=== PATIENT | female | born 1955 | race African-American/Black ===

== ENCOUNTER 2017-03-27 00:51 | Emergency (ER) | payer BC ==
[2017-03-27 02:52] LABS: ABSOLUTE BASOPHILS # (AUTO) 0.1 10^3/uL (0.0-0.2); ABSOLUTE EOSINOPHILS # (AUTO) 0.2 10^3/uL (0.0-0.6); ABSOLUTE LYMPHOCYTES (AUTO) 1.6 10^3/uL (0.5-4.7); ABSOLUTE MONOCYTES (AUTO) 0.6 10^3/uL (0.1-1.4); ABSOLUTE NEUT (AUTO) 5.4 10^3/uL (1.7-8.2); BASOPHILS % (AUTO) 0.7 % (0-2); EOSINOPHILS % (AUTO) 2.2 % (0-6); HEMOGLOBIN 12.8 g/dL (12.0-15.5); HGB HCT DIFFERENCE 0.4; LYMPHOCYTES % (AUTO) 20.3 % (13-45); MEAN CORPUSCULAR HEMOGLOBIN 30.5 pg (27.0-33.4); MEAN CORPUSCULAR HGB CONC 33.6 g/dL (32.0-36.0); MEAN CORPUSCULAR VOLUME 91 fl (80-97); MONOCYTES % (AUTO) 7.5 % (3-13); RED BLOOD COUNT 4.18 10^6/uL (3.72-5.28); RED CELL DISTRIBUTION WIDTH 15.2 % (11.5-14.0); SEGMENTED NEUTROPHILS % (AUTO) 69.3 % (42-78); WHITE BLOOD COUNT 7.8 10^3/uL (4.0-10.5)
[2017-03-27 03:06] LABS: ALANINE AMINOTRANSFERASE 20 U/L (9-52); ALBUMIN 4.4 g/dL (3.5-5.0); ALKALINE PHOSPHATASE 76 U/L (38-126); ANION GAP 14 (5-19); ASPARTATE AMINO TRANSFERASE 21 U/L (14-36); BILIRUBIN,DIRECT 0.5 mg/dL (0.0-0.4); BILIRUBIN,TOTAL 0.6 mg/dL (0.2-1.3); BLOOD UREA NITROGEN 20 mg/dL (7-20); CARBON DIOXIDE 28 mmol/L (22-30); CHLORIDE 102 mmol/L (98-107); CREATININE RESULT 0.99 mg/dL (0.52-1.25); GLUCOSE 97 mg/dL (75-110); POTASSIUM 3.7 mmol/L (3.6-5.0); SODIUM 143.8 mmol/L (137-145); TOTAL PROTEIN 8.1 g/dL (6.3-8.2)
[2017-03-27 03:35] LABS: CALCIUM 6.5 mg/dL (8.4-10.2)
[2017-03-27] MEDS ORDERED: NORMAL SALINE 1000 ML 1,000 ML IV ONE (06:38)
[2017-03-27] MEDS ORDERED: CLINDAMYCIN 600 MG/D5W RTU 50 ML IV ONE (06:39)
--- NOTE | 2017-03-27 08:50 | RADIOLOGY REPORT (SQ) ---
EXAM DESCRIPTION: CT FACIAL AREA WITHOUT COMPLETED DATE/TIME: 03/27/2017 8:36 am REASON FOR STUDY: left jaw swelling eval abscess; pt refusing IV contrast COMPARISON: None. TECHNIQUE: Noncontrasted images through the facial bones and orbits windowed for bone and soft tissu e. Additional coronal and sagittal reconstructed images reviewed. All images stored on PACS. All CT scanners at this facility use dose modulation, iterative reconstruction, and/or weight based d osing when appropriate to reduce radiation dose to as low as reasonably achievable (ALARA). [facility]: Dose Right [facility]: CareDose [facility]: Dose Right [facility]: Teradose 4D [facility]: Key Travel RADIATION DOSE: 30.40 mGy. LIMITATIONS: None. FINDINGS: FACIAL BONES: No fracture or bone lesion. ORBITS: Intact. No fracture. Symmetric intact globes and retroorbital soft tissues. PARANASAL SINUSES: Clear. No significant mucosal thickening, mass or fluid. No nasal polyps. Maxill jake sinus outlets are patent. SOFT TISSUES: There is diffuse swelling of the left aspect of the jaw. This is most prominent surrou nding the mandible. There is a lucency in the mandible most likely representing a cavity. The patie nt refused IV contrast making evaluation of abscess difficult. No focal fluid collection is identifi ed. INFERIOR BRAIN: Limited view. No acute findings. OTHER: No other significant finding. IMPRESSION: Diffuse left-sided soft tissue swelling most likely secondary to a cavity in the mandibl e. The patient refused IV contrast which decreases sensitivity. No focal fluid collection is identi fied but developing abscess is suspected. TECHNICAL DOCUMENTATION: JOB ID: [id number] Quality ID # [id number]: Final reports with documentation of one or more dose reduction techniques (e.g., Au tomated exposure control, adjustment of the mA and/or kV according to patient size, use of iterative reconstruction technique) 2010 [employer]- All Rights Reserved
[2017-03-27] MEDS ORDERED: ACETAMINOPHEN 325 MG TABLET ONE (09:07)
--- NOTE | 2017-03-27 09:57 | ER Document Report ---
ED General - General Chief Complaint: Mouth Problem Stated Complaint: ABSCESS Time Seen by Provider: 03/27/17 06:24 - HPI Patient complains to provider of: Left jaw pain Notes: Coming in for swelling left ongoing for the last few days. Patient denies any fevers chills nausea vomiting. Patient does state some dental pain. Patient states she may have a dental abscess. No history of abscess in the past. Patient is talking in complete sentences no drooling or trismus no signs of any impending airway compromise. - Related Data Allergies/Adverse Reactions: No Known Allergies Allergy (Verified 03/27/17 00:56) Past Medical History - Social History Smoking Status: Current Every Day Smoker Chew tobacco use (# tins/day): No Frequency of alcohol use: None Drug Abuse: None Family History: Reviewed & Not Pertinent - Past Medical History Cardiac Medical History: Reports: Hx Hypertension Endocrine Medical History: Reports: Hx Hypothyroidism Renal/ Medical History: Denies: Hx Peritoneal Dialysis Musculoskeltal Medical History: Reports Hx Arthritis Past Surgical History: Reports: Hx Thyroid Surgery - Thyroidectomy for thyroid cancer - Immunizations Hx Diphtheria, Pertussis, Tetanus Vaccination: Yes - 08/07/12 Review of Systems - Review of Systems Constitutional: No symptoms reported EENT: Other - Jaw pain Cardiovascular: No symptoms reported Respiratory: No symptoms reported Gastrointestinal: No symptoms reported Genitourinary: No symptoms reported Female Genitourinary: No symptoms reported Musculoskeletal: No symptoms reported Skin: No symptoms reported Hematologic/Lymphatic: No symptoms reported Neurological/Psychological: No symptoms reported -: Yes All other systems reviewed and negative Physical Exam - Vital signs Vitals: Temp Pulse BP Pulse Ox 98.6 F 94 179/103 H 97 03/27/17 00:56 03/27/17 00:56 03/27/17 00:56 03/27/17 00:56 Interpretation: Normal - General General appearance: Appears well, Alert - HEENT Head: Normocephalic, Atraumatic Eyes: Normal Pupils: PERRL Notes: Patient with significant poor dentition and dental caries throughout the mouth. Patient does have a dental caries in the the number 19th molar with no signs of gingival cellulitis or abscess formation. Patient does have swelling at the angle of the mandible adjacent to this molar. It is tender to touch there is no skin changes. There is no lymphadenopathy palpated within the neck no prominence of the submandibular glands or tissue - Respiratory Respiratory status: No respiratory distress Chest status: Nontender Breath sounds: Normal Chest palpation: Normal - Cardiovascular Rhythm: Regular Heart sounds: Normal auscultation Murmur: No - Abdominal Inspection: Normal Distension: No distension Bowel sounds: Normal Tenderness: Nontender Organomegaly: No organomegaly - Back Back: Normal, Nontender - Extremities General upper extremity: Normal inspection, Nontender, Normal color, Normal ROM , Normal temperature General lower extremity: Normal inspection, Nontender, Normal color, Normal ROM , Normal temperature, Normal weight bearing. No: Lulú's sign - Neurological Neuro grossly intact: Yes Cognition: Normal Orientation: AAOx4 [place] Coma Scale Eye Opening: Spontaneous [place] Coma Scale Verbal: Oriented [place] Coma Scale Motor: Obeys Commands [place] Coma Scale Total: 15 Speech: Normal Motor strength normal: LUE, RUE, LLE, RLE Sensory: Normal - Psychological Associated symptoms: Normal affect, Normal mood - Skin Skin Temperature: Warm Skin Moisture: Dry Skin Color: Normal Course - Re-evaluation Re-evalutation: 03/27/17 13:44 Patient refused IV contrast. CT scan shows significant signs of inflammation possible infection and abscess formation. Course is limited due to the lack of IV contrast. Patient will be given clindamycin patient was given oral surgery follow-up and also dental follow-up. Patient instructed to take her antibiotics patient will be discharged - Vital Signs Vital signs: Temp Pulse Resp BP Pulse Ox 97.6 F 74 16 164/98 H 99 03/27/17 10:16 03/27/17 10:16 03/27/17 10:16 03/27/17 10:16 03/27/17 10:16 - Laboratory Result Diagrams: 03/27/17 02:31 03/27/17 02:31 Laboratory results interpreted by me: 03/27/17 03/27/17 02:31 02:31 RDW 15.2 H Est GFR (Non-Af Amer) 57 L Calcium 6.5 L* Direct Bilirubin 0.5 H Discharge - Discharge Clinical Impression: Dental infection Condition: Good Disposition: HOME, SELF-CARE Instructions: Dental Infection or Abscess ([facility]), Dentist, Oral Narcotic Medication ([facility]) Additional Instructions: Your CT scan today does not show any signs of abscess formation but there is related in flexion causing the swelling from one the teeth in the left side of her lower jaw. Very important to follow with a dentist and will likely have this tooth removed. Return to the ER if you develop any difficulty breathing swallowing or pain increases. It is also very important to continue the antibiotic that we prescribed you here in the ER. Prescriptions: Clindamycin HCl [Cleocin HCl] 150 mg PO QID 10 Days Hydrocodone Bit/Acetaminophen [Hydrocodon-Acetaminophen 5-325] 1 each PO Q6 #20 tablet Lisinopril 40 mg PO DAILY #30 tablet Forms: Return to Work Referrals: TREY RUBIO DDS [ACTIVE STAFF] - Follow up as needed
[2017-03-27 10:18] VITALS: BP 164/98
== END 2017-03-27 10:16 | disposition home or self-care (01) ==
LOC: ER 00:51
DX: K04.7 Periapical abscess without sinus (principal); K08.89 Other specified disorders of teeth and supporting structures; F17.200 Nicotine dependence, unspecified, uncomplicated; I10 Essential (primary) hypertension; Z85.850 Personal history of malignant neoplasm of thyroid
CPT/HCPCS: 99283; 96374; 36415; 87040; 85025; 80053; 70486; J7030

== ENCOUNTER → 2017-06-02 | Outpatient (CLI) | payer BC ==
--- NOTE | 2017-06-02 10:50 | RADIOLOGY REPORT (SQ) ---
EXAM DESCRIPTION: CHEST PA/LATERAL COMPLETED DATE/TIME: 06/02/2017 10:38 am REASON FOR STUDY: COUGH COMPARISON: 07/01/2014 EXAM PARAMETERS: NUMBER OF VIEWS: two views TECHNIQUE: Digital Frontal and Lateral radiographic views of the chest acquired. RADIATION DOSE: NA LIMITATIONS: none FINDINGS: LUNGS AND PLEURA: No opacities, masses or pneumothorax. No pleural effusion. MEDIASTINUM AND HILAR STRUCTURES: No masses or contour abnormalities. HEART AND VASCULAR STRUCTURES: Heart normal size. No evidence for failure. BONES: No acute findings. HARDWARE: None in the chest. OTHER: No other significant finding. IMPRESSION: NO SIGNIFICANT RADIOGRAPHIC FINDING IN THE CHEST. TECHNICAL DOCUMENTATION: JOB ID: [id number] [employer]- All Rights Reserved
== END ==
LOC: OD 10:23
PROVIDERS: ATTEND Family Medicine
DX: R05 Cough (principal)
CPT/HCPCS: 71020

== ENCOUNTER 2017-10-09 08:13 | Day surgery (SDC) | payer BC ==
[~2017-10-09 08:13] MED LIST: PROPOFOL INJ 200 MG/20 ML VIAL IV ONE
[2017-10-09 11:34] VITALS: BP 134/72
--- NOTE | 2017-10-09 12:53 | Operative Report ---
Operative Report DATE OF SURGERY: 10/09/17 Operative Report: The risks, benefits and alternatives of the procedure including risks of bleeding, perforation requiring surgery are explained to the patient in detail and informed consent is obtained. Patient was taken back to the endoscopy suite and placed in the left, lateral decubital position. Timeout was called. Propofol medications administered. A rectal examination is done which did not reveal any masses, tears or fissures. An Olympus videoscope was inserted into the patient's rectum. The scope was then carefully advanced all the way to the cecum. The cecum was identified by the usual anatomical landmarks including the ileocecal valve as well as the appendiceal office. Photodocumentation is obtained. The scope was then sequentially pulled back via the various segments of the colon including the ascending colon, hepatic flexure, transverse colon, splenic flexure, descending colon and finally into the rectosigmoid portions of the colon. Retroflexion maneuvers performed. PREOPERATIVE DIAGNOSIS: Colorectal cancer screening POSTOPERATIVE DIAGNOSIS: Small erosion in the mucosa noted in the cecum status post biopsy. Diverticulosis. Internal hemorrhoids OPERATION: Colonoscopy with biopsy SURGEON: TALYA MONTIEL ANESTHESIA: LMAC TISSUE REMOVED OR ALTERED: As noted above. COMPLICATIONS: None. ESTIMATED BLOOD LOSS: None. INTRAOPERATIVE FINDINGS: As described above. PROCEDURE: Patient tolerated procedure well. No immediate postprocedure complications are noted. Patient discharged in good condition. Discharge date 10/09/2017. Discharge diet: Regular. Discharge activity: Regular. 2-3 week follow-up to discuss findings. Patient is instructed to call the office or proceed to the emergency room should there be any further problems or questions. We will await pathology. If pathology is negative 10 year surveillance colonoscopy.
== END 2017-10-09 10:30 | disposition home or self-care (01) ==
LOC: END 08:13
PROVIDERS: ATTEND Internal Medicine Gastroenterology
PROC: 0DBH8ZX Excision of Cecum, Via Natural or Artificial Opening Endoscopic, Diagnostic (ICD-10-PCS; principal; 2017-10-09 10:30)
DX: Z12.11 Encounter for screening for malignant neoplasm of colon (principal); K57.30 Diverticulosis of large intestine without perforation or abscess without bleeding; K64.8 Other hemorrhoids; K63.3 Ulcer of intestine; E89.0 Postprocedural hypothyroidism; I10 Essential (primary) hypertension; Z85.850 Personal history of malignant neoplasm of thyroid; Z79.899 Other long term (current) drug therapy
CPT/HCPCS: 45380; 88342 ×2; 88305 ×2; J2704

== ENCOUNTER → 2020-01-21 | Outpatient (CLI) | payer SELFPAY | LOC: OD 13:57 | PROVIDERS: ATTEND Nurse Practitioner Primary Care | DX: E83.51 Hypocalcemia (principal) | CPT/HCPCS: 36415; 82310 ==

== ENCOUNTER 2020-04-22 09:07 | Emergency (ER) | payer SELFPAY ==
[2020-04-22 09:36] VITALS: BP 147/92
--- NOTE | 2020-04-22 09:56 | ER Document Report ---
ED General - General Chief Complaint: Blood Pressure Problem Stated Complaint: BLOOD PRESSURE ISSUES Time Seen by Provider: 04/22/20 09:45 Primary Care Provider: REGI WALTER FNP-C [Primary Care Provider] - Follow up as needed Mode of Arrival: Ambulatory Information source: Patient TRAVEL OUTSIDE OF THE [place] IN LAST 30 DAYS: No - HPI Notes: Patient presents stating that she had some chills this morning and also felt like she may have an episode of diarrhea. She states this concerned her that she may have COVID. She states she has no known COVID exposures. She also states that she noticed her blood pressure was high approximate 178 systolic this morning and that concerned her. She denies any significant shortness of breath or coughing. No runny nose. No rashes. She has not had any chest pain. She states that the chills were brief. Nothing made them better or worse. They obviously did not radiate. And they were mild in intensity. She states currently she does not feel chilled. - Related Data Allergies/Adverse Reactions: No Known Allergies Allergy (Verified 10/09/17 08:44) Home Medications: levothyroxine, lisinopril Past Medical History - General Information source: Patient - Social History Smoking Status: Current Every Day Smoker Frequency of alcohol use: None Drug Abuse: None Family History: Reviewed & Not Pertinent - Past Medical History Cardiac Medical History: Reports: Hx Hypertension Denies: Hx Heart Attack Pulmonary Medical History: Reports: Hx COPD Denies: Hx Asthma, Hx Bronchitis, Hx Pneumonia Neurological Medical History: Reports: Hx Seizures - LAST ONE MANY YEARS AGO. Denies: Hx Cerebrovascular Accident Endocrine Medical History: Reports: Hx Hypothyroidism Renal/ Medical History: Denies: Hx Peritoneal Dialysis Musculoskeletal Medical History: Reports Hx Arthritis Past Surgical History: Reports: Hx Thyroid Surgery - Thyroidectomy for thyroid cancer - Immunizations Hx Diphtheria, Pertussis, Tetanus Vaccination: Yes - 08/07/12 Review of Systems - Review of Systems Constitutional: Chills. denies: Fever, Recent illness Cardiovascular: denies: Chest pain, Palpitations Respiratory: denies: Cough, Short of breath Physical Exam - Vital signs Vitals: Temp Pulse Resp BP Pulse Ox 98.2 F 80 16 147/92 H 95 04/22/20 09:33 04/22/20 09:33 04/22/20 09:33 04/22/20 09:33 04/22/20 09:33 Interpretation: Hypertensive - General General appearance: Appears well, Alert - HEENT Head: Normocephalic, Atraumatic Eyes: Normal Pupils: PERRL - Respiratory Respiratory status: No respiratory distress Chest status: Nontender Breath sounds: Normal Chest palpation: Normal - Cardiovascular Rhythm: Regular Heart sounds: Normal auscultation Murmur: No - Abdominal Inspection: Normal Distension: No distension Bowel sounds: Normal Tenderness: Nontender Organomegaly: No organomegaly - Back Back: Normal, Nontender - Extremities General upper extremity: Normal inspection, Nontender, Normal color, Normal ROM, Normal temperature General lower extremity: Normal inspection, Nontender, Normal color, Normal ROM, Normal temperature, Normal weight bearing. No: Lulú's sign - Neurological Neuro grossly intact: Yes Cognition: Normal Orientation: AAOx4 [place] Coma Scale Eye Opening: Spontaneous [place] Coma Scale Verbal: Oriented [place] Coma Scale Motor: Obeys Commands [place] Coma Scale Total: 15 Speech: Normal Motor strength normal: LUE, RUE, LLE, RLE Sensory: Normal - Psychological Associated symptoms: Normal affect, Normal mood - Skin Skin Temperature: Warm Skin Moisture: Dry Skin Color: Normal Course - Re-evaluation Re-evalutation: 04/22/20 09:54 Patient was offered a COVID test but she declined. I believe the patient is very low risk so I think this is reasonable. I explained to patient that she has a normal exam normal vital signs at this time. Also since she currently has essentially no symptoms I did not feel that further testing would benefit the patient. She agreed and stated that she would like to be discharged. - Vital Signs Vital signs: Temp Pulse Resp BP Pulse Ox 98.2 F 80 16 147/92 H 95 04/22/20 09:37 04/22/20 09:33 04/22/20 09:33 04/22/20 09:33 04/22/20 09:33 Discharge - Discharge Clinical Impression: Chills (without fever) Condition: Stable Disposition: HOME, SELF-CARE Additional Instructions: Please call your primary care doctor soon as possible to arrange follow-up Forms: Elevated Blood Pressure Referrals: REGI WALTER FNP-C [Primary Care Provider] - Follow up in 3-5 days
== END 2020-04-22 10:00 | disposition home or self-care (01) ==
LOC: ER 09:07
DX: R68.83 Chills (without fever) (principal); F17.200 Nicotine dependence, unspecified, uncomplicated; I10 Essential (primary) hypertension; E89.0 Postprocedural hypothyroidism; Z79.899 Other long term (current) drug therapy
CPT/HCPCS: 99283